=== PATIENT | male | born 1965 | race Caucasian/White ===

== ENCOUNTER → 2023-09-18 08:43 | Outpatient (REF) | payer OTHER, BC, SELFPAY | LOC: HWRCS 08:43 | PROVIDERS: ATTENDING PHYSICIAN Internal Medicine Cardiovascular Disease; FAMILY PHYSICIAN Physician Assistant Medical | DX: R06.02 Shortness of breath (principal) | CPT/HCPCS: 93306 ==

== ENCOUNTER → 2023-09-24 08:02 | Outpatient (REF) | payer OTHER, BC, SELFPAY ==
[2023-09-26 06:30] LABS: Calprotectin, Fecal 240 ug/g (<=49)
== END ==
LOC: REG 08:02
PROVIDERS: ATTENDING PHYSICIAN Specialist; FAMILY PHYSICIAN Physician Assistant Medical
DX: K50.019 Crohn's disease of small intestine with unspecified complications (principal)
CPT/HCPCS: 83993

== ENCOUNTER → 2023-10-05 08:15 | Outpatient (REF) | payer OTHER, BC, SELFPAY ==
[2023-10-05 09:15] LABS: Blood Urea Nitrogen 11 mg/dl (9-20); Calcium 9.5 mg/dl (8.4-10.2); Carbon Dioxide 29 mmol/L (22-30); Chloride 103 mmol/L (98-107); Glucose 88 mg/dl (70-99); Sodium 140 mmol/L (135-145); eGFR > 60.00
[2023-10-05 10:25] LABS: Testosterone, Total < 4.9 ng/dl (72-623)
== END ==
LOC: REG 08:15
PROVIDERS: ATTENDING PHYSICIAN Specialist; FAMILY PHYSICIAN Physician Assistant Medical
DX: N28.89 Other specified disorders of kidney and ureter (principal); N52.9 Male erectile dysfunction, unspecified
CPT/HCPCS: 36415; 80048; 84403

== ENCOUNTER → 2023-10-11 09:44 | Outpatient (REF) | payer OTHER, SELFPAY | LOC: HWRAD 09:44 | PROVIDERS: ATTENDING PHYSICIAN Specialist; FAMILY PHYSICIAN Physician Assistant Medical; REFERRING PHYSICIAN Specialist | DX: N28.89 Other specified disorders of kidney and ureter (principal) | CPT/HCPCS: 74170; Q9967 ==

== ENCOUNTER → 2023-10-17 06:07 | Day surgery (SDC) | payer OTHER, BC, SELFPAY ==
--- NOTE | 2023-09-19 11:11 | CM ---
Patient is scheduled for an elective L TKR on 10/17/23- he is a same day patient. Spoke with patient prior to surgery. Introduced role of Orthopedic Navigator. Patient reports that he lives with his in a multi story home. There is one step down
to enter and then none (5-4) steps to all living areas. He currently functions independently. He has a cane and rolling walker. He has never had VN services. PCP is Azul Alexandra.
Discussed orthopedic program and post surgical plans. Reviewed that he will have VN services initially and will then start outpatient PT. Patient selects [facility] (face sheet faxed to [facility] to facilitate confirmation of benefits) for his home care
needs and will go to [facility] for outpatient PT.
Patient is in agreement with plan and states that his will be home with him.
Patient will complete online education.
Plan: Orthopedic Navigator will remain available to assist with the care of patient and will reassess discharge needs after surgery.
[2023-09-24 07:23] VITALS: BMI 29.4
[2023-09-24 08:52] LABS: Hematocrit 38.9 % (39.0-52.0); Hemoglobin 13.6 g/dL (13.0-18.0); Mean Corpuscular Volume 94.4 fL (80.0-94.0); Mean Platelet Volume 11.2 fL (7.4-10.4); Platelet Count 140 10^3/uL (130-400); Red Blood Cell Count 4.12 10^6/uL (4.70-6.10); Red Cell Dist. Width 13.3 % (11.5-14.5); White Blood Cell Count 3.9 10^3/uL (4.8-10.8)
[2023-09-24 09:05] LABS: ALT (SGPT) 19 U/L (0-50); AST (SGOT) 43 U/L (17-59); Albumin 3.7 g/dl (3.5-5.0); Alkaline Phosphatase 89 U/L (38-126); Blood Urea Nitrogen 13 mg/dl (9-20); Calcium 8.8 mg/dl (8.4-10.2); Carbon Dioxide 29 mmol/L (22-30); Chloride 103 mmol/L (98-107); Estimated Creatinine Clearance 58 ml/min; Glucose 92 mg/dl (70-99); Potassium 3.7 mmol/L (3.5-5.1); Sodium 128 mmol/L (135-145); Total Bilirubin 0.7 mg/dl (0.2-1.3); Total Protein 5.9 g/dl (6.3-8.2); eGFR > 60.00
[2023-09-24 12:01] LABS: Glycohemoglobin (HgbA1c) 5.6 % (4.0-5.6)
[2023-09-24 15:03] VITALS: BMI 29.4
[2023-10-17] VITALS (13 sets, daily range): BP systolic 93–181; BP diastolic 67–112; PULSE 66; O2SAT 97; BMI 29.4
[2023-10-17] MEDS: CELEBREX 200 MG PO (06:45)
[2023-10-17] MEDS: NORMOSOL-R 1000 IV (06:45)
[2023-10-17] MEDS: TYLENOL 650 MG PO (06:45)
--- NOTE | 2023-10-17 06:47 | W.DS.TRANS ---
DC Summary - Ticket Sales Supervisor
-
Discharge Instructions:
Discharge Diagnosis/Procedures L JAMEY Magallon 10/17/23
Diet As tolerated
Activity With Walker
Driving Restrictions No driving
Bathing Restrictions OK to Shower
Other Services PT
Instructions:
Stand-Alone Forms: SDS Total Hip and Knee D/C
Changes to Home Medications: Yes
Discharge Medications:
DC Medications w/original date entered in [employer]
folic acid 1 mg tablet 1 mg PO DAILY Supplement 09/08/22
multivitamin 1 tab PO HS Supplement 09/08/22
glucosamine-chondroitin 2,000 mg-1,200 mg/30 mL oral liquid 15 ml PO HS 09/20/23
ibuprofen 200 mg tablet 200 mg PO Q6H PRN PAIN 09/20/23
mecobalamin (vitamin B12) 1,000 mcg chewable tablet (B12 Active) 1,000 mcg PO DAILY 09/20/23
omeprazole 40 mg capsule,delayed release 40 mg PO DAILY 09/20/23
potassium citrate 15 mEq (1,620 mg) tablet,extended release 15 meq PO BID 09/20/23
ustekinumab 90 mg/mL subcutaneous syringe (Stelara) 90 mg SC Q8W 09/20/23
gabapentin 300 mg capsule 300 mg PO HS sleep/pain #10 caps 09/24/23
hydrocodone 5 mg-acetaminophen 325 mg tablet 1 tab PO Q6H PRN 1 tab moderate pain or 2 if severe #30 tabs 09/24/23
meloxicam 15 mg tablet 15 mg PO DAILY anti-inflammatory #14 tabs 09/24/23
mupirocin 2 % topical ointment 1 applic topical BID infection prevention #1 tube 09/24/23
prednisone 10 mg tablet 40 mg PO TAPER inflammation #20 tabs 09/24/23
tizanidine 2 mg capsule 2 mg PO BID muscle relaxer/sleep #20 caps 09/24/23
acetaminophen 325 mg capsule (Tylenol) 650 mg PO QID #2 caps 10/17/23
aspirin 325 mg tablet 325 mg PO DAILY blood clot prevention #1 tab 02/28/24
docusate sodium 100 mg capsule (Colace) 100 mg PO BID stool softner #1 cap 10/17/23
sennosides 8.6 mg tablet (Senokot) 17.2 mg PO BID PRN laxative #2 tabs 10/17/23
Home Medication Changes
gabapentin 300 mg capsule 300 mg PO HS sleep/pain #10 caps 09/24/23
hydrocodone 5 mg-acetaminophen 325 mg tablet 1 tab PO Q6H PRN 1 tab moderate pain or 2 if severe #30 tabs 09/24/23
meloxicam 15 mg tablet 15 mg PO DAILY anti-inflammatory #14 tabs 09/24/23
mupirocin 2 % topical ointment 1 applic topical BID infection prevention #1 tube 09/24/23
prednisone 10 mg tablet 40 mg PO TAPER inflammation #20 tabs 09/24/23
tizanidine 2 mg capsule 2 mg PO BID muscle relaxer/sleep #20 caps 09/24/23
Pending Results: No
--- NOTE | 2023-10-17 09:20 | SUR.PHASEII ---
Dr. Moffett notified about BP will continue to monitor
--- NOTE | 2023-10-17 10:49 | CM ---
Patient had planned L TKR today. Met with patient and his at bedside to review discharge plans. Patient will be returning home today with services through [facility]. On Sunday, 10/21, patient will start outpatient PT at [facility]. Reviewed MD follow
up in two weeks and patient has already scheduled his appointment.
Patient has his rolling walker here with him.
PT and V[facility] were kept updated as to progress and discharge plans.
[2023-10-17] MEDS: ANCEF 5 IV (11:02)
== END | disposition home health service (06) ==
LOC: SDS 06:07
PROVIDERS: ATTENDING PHYSICIAN Orthopaedic Surgery; FAMILY PHYSICIAN Physician Assistant Medical; OTHER PHYSICIAN Internal Medicine Cardiovascular Disease; REFERRING PHYSICIAN Physician Assistant Medical
DX: M17.12 Unilateral primary osteoarthritis, left knee (principal)
CPT/HCPCS: 27447; C1776; C1713; 36415; 73560; 80053; 83036; 85027; 87070; 97116; 97161

== ENCOUNTER → 2024-01-02 07:57 | Outpatient (REF) | payer OTHER, BC, SELFPAY ==
[2024-01-02 10:18] LABS: Luteinizing Hormone < 0.22 mIU/ml (1.24-7.80)
[2024-01-02 10:43] LABS: Prolactin 44.9 ng/ml (3.7-17.9)
[2024-01-04 11:18] LABS: % Free Testosterone <1.3 % (1.6-2.9); Free Testosterone <1 pg/mL (47-244); Sex Hormone Binding Globulin 51 nmol/L (19-76); Testosterone, Bioavailable <1 ng/dL (131-682); Total Testosterone <3 ng/dL (300-720)
== END ==
LOC: RAD 07:57
PROVIDERS: ATTENDING PHYSICIAN Internal Medicine Critical Care Medicine; FAMILY PHYSICIAN Family Medicine; REFERRING PHYSICIAN Specialist
DX: J98.4 Other disorders of lung (principal); Q87.89 Other specified congenital malformation syndromes, not elsewhere classified; E29.1 Testicular hypofunction; N43.42 Spermatocele of epididymis, multiple
CPT/HCPCS: 36415; 71250; 82103; 82104; 83002; 84146; 84270; 84402; 84403

== ENCOUNTER → 2024-02-08 19:22 | Outpatient (REF) | payer OTHER, BC, SELFPAY | LOC: MRI 19:22 | PROVIDERS: ATTENDING PHYSICIAN Specialist; FAMILY PHYSICIAN Physician Assistant Medical | DX: E22.1 Hyperprolactinemia (principal) | CPT/HCPCS: 70553; A9575 ==

== ENCOUNTER → 2024-02-22 08:40 | Outpatient (REF) | payer OTHER, BC, SELFPAY ==
[2024-02-22 10:20] LABS: % Basophils 0.5 % (0-2); % Eosinophils 7.3 % (0-6); % Immature Granulocytes 0.2 % (0-0.5); % Lymphocytes 31.6 % (20.5-51.1); % Monocytes 9.4 % (1.7-9.3); Absolute Eosinophils 0.3 10^3/uL (0-0.7); Absolute Lymphocytes 1.4 10^3/uL (1.2-3.4); Absolute Monocytes 0.4 10^3/uL (0.1-0.6); Absolute Neutrophils 2.2 10^3/uL (1.4-6.5); Hematocrit 41.3 % (39.0-52.0); Hemoglobin 13.7 g/dL (13.0-18.0); Mean Corp Hgb Conc. 33.2 g/dL (33.0-37.0); Mean Corpuscular Hgb 30.9 pg (27.0-31.0); Mean Corpuscular Volume 93.2 fL (80.0-94.0); Mean Platelet Volume 10.2 fL (7.4-10.4); Nucleated Red Blood Cells % 0 % (-); Platelet Count 165 10^3/uL (130-400); Red Blood Cell Count 4.43 10^6/uL (4.70-6.10); Red Cell Dist. Width 12.8 % (11.5-14.5); White Blood Cell Count 4.4 10^3/uL (4.8-10.8)
[2024-02-22 10:38] LABS: ALT (SGPT) < 10 U/L (0-50); AST (SGOT) 34 U/L (17-59); Albumin 4.2 g/dl (3.5-5.0); Alkaline Phosphatase 88 U/L (38-126); Blood Urea Nitrogen 11 mg/dl (9-20); Calcium 9.5 mg/dl (8.4-10.2); Carbon Dioxide 26 mmol/L (22-30); Chloride 107 mmol/L (98-107); Glucose 90 mg/dl (70-99); Potassium 3.9 mmol/L (3.5-5.1); Sodium 142 mmol/L (135-145); Total Bilirubin 0.5 mg/dl (0.2-1.3); Total Protein 6.7 g/dl (6.3-8.2); eGFR > 60.00
[2024-02-22 10:50] LABS: Total Iron Binding Capacity 241 ug/dl (261-462)
[2024-02-22 10:52] LABS: Erythrocyte Sed Rate 14 mm/hour (0-20)
[2024-02-22 10:54] LABS: Luteinizing Hormone < 0.22 mIU/ml (1.24-7.80); Prolactin 31.1 ng/ml (3.7-17.9)
[2024-02-22 11:09] LABS: TSH Reflex To Free T4 3.98 uIU/ml (0.47-4.68)
[2024-02-22 11:10] LABS: Cortisol, Random 6.3 ug/dl
[2024-02-22 11:12] LABS: Hepatitis B Surface Antigen Negative (Negative)
[2024-02-22 11:29] LABS: Hepatitis B Core Ab, Total Negative (Negative); Hepatitis B Surface Antibody Negative; Vitamin B12 802 pg/ml (239-931)
[2024-02-23 21:03] LABS: % Free Testosterone <1.6 % (1.6-2.9); Free Testosterone <1 pg/mL (47-244); Sex Hormone Binding Globulin 36 nmol/L (19-76); Total Testosterone <3 ng/dL (300-720)
[2024-02-24 02:18] LABS: Vitamin D 1,25 Dihydroxy 24.4 pg/mL (19.9-79.3)
[2024-02-24 03:55] LABS: IGF-1 Z Score Calculation -2.3; Insulin-like Growth Factor I 58 ng/mL (53-206)
== END ==
LOC: REG 08:40
PROVIDERS: ATTENDING PHYSICIAN Internal Medicine Endocrinology, Diabetes & Metabolism; FAMILY PHYSICIAN Physician Assistant Medical; REFERRING PHYSICIAN Specialist
DX: D49.7 Neoplasm of unspecified behavior of endocrine glands and other parts of nervous system (principal); K50.00 Crohn's disease of small intestine without complications
CPT/HCPCS: 36415; 80053; 82533; 82607; 82652; 82728; 83001; 83002; 83550; 84146; 84270; 84305; 84402; 84403; 84443; 85025; 85652; 86140; 86704; 86706; 87340

== ENCOUNTER → 2024-03-08 08:24 | Outpatient (REF) | payer OTHER, BC, SELFPAY | LOC: REG 08:24 | PROVIDERS: ATTENDING PHYSICIAN Specialist | DX: K50.00 Crohn's disease of small intestine without complications (principal) | CPT/HCPCS: 83993 ==

== ENCOUNTER → 2024-03-13 07:52 | Outpatient (REF) | payer OTHER, BC, SELFPAY ==
[2024-03-13 08:16] LABS: % Eosinophils 14.2 % (0-6); % Immature Granulocytes 0.2 % (0-0.5); % Lymphocytes 30.9 % (20.5-51.1); % Monocytes 10.5 % (1.7-9.3); % Neutrophils 43.2 % (42.2-75.2); Absolute Eosinophils 0.6 10^3/uL (0-0.7); Absolute Lymphocytes 1.3 10^3/uL (1.2-3.4); Absolute Monocytes 0.4 10^3/uL (0.1-0.6); Absolute Neutrophils 1.8 10^3/uL (1.4-6.5); Hematocrit 40.2 % (39.0-52.0); Hemoglobin 14.3 g/dL (13.0-18.0); Mean Corp Hgb Conc. 35.6 g/dL (33.0-37.0); Mean Corpuscular Hgb 32.1 pg (27.0-31.0); Mean Corpuscular Volume 90.3 fL (80.0-94.0); Mean Platelet Volume 10.4 fL (7.4-10.4); Nucleated Red Blood Cells % 0 % (-); Platelet Count 151 10^3/uL (130-400); Red Blood Cell Count 4.45 10^6/uL (4.70-6.10); Red Cell Dist. Width 13.2 % (11.5-14.5); White Blood Cell Count 4.1 10^3/uL (4.8-10.8)
[2024-03-13 12:26] LABS: Cortisol, Random 7.3 ug/dl; PSA, Total - Screen < 0.06 ng/ml (0.0-4.0)
[2024-03-14 22:10] LABS: Adrenocorticotropic Hormone 41.2 pg/mL (7.2-63.3)
== END ==
LOC: REG 07:52
PROVIDERS: ATTENDING PHYSICIAN Internal Medicine Endocrinology, Diabetes & Metabolism; FAMILY PHYSICIAN Physician Assistant Medical
DX: D35.2 Benign neoplasm of pituitary gland (principal); R35.1 Nocturia
CPT/HCPCS: 36415; 82024; 82533; 85025; G0103

== ENCOUNTER → 2024-05-07 09:35 | Outpatient (REF) | payer OTHER, BC, SELFPAY ==
[2024-05-07 11:39] LABS: Free T4 0.67 ng/dl (0.78-2.19); Prolactin 31.3 ng/ml (3.7-17.9)
[2024-05-07 11:41] LABS: ALT (SGPT) 28 U/L (0-50); AST (SGOT) 55 U/L (17-59); Albumin 4.4 g/dl (3.5-5.0); Alkaline Phosphatase 77 U/L (38-126); Blood Urea Nitrogen 12 mg/dl (9-20); Calcium 9.5 mg/dl (8.4-10.2); Carbon Dioxide 29 mmol/L (22-30); Chloride 104 mmol/L (98-107); Glucose 88 mg/dl (70-99); Potassium 4.4 mmol/L (3.5-5.1); Sodium 144 mmol/L (135-145); Total Bilirubin 0.8 mg/dl (0.2-1.3); Total Protein 6.6 g/dl (6.3-8.2); eGFR > 60.00
[2024-05-07 11:53] LABS: TSH 2.85 uIU/ml (0.47-4.68)
[2024-05-07 12:00] LABS: Cortisol, Random 7.5 ug/dl
[2024-05-09 14:52] LABS: % Free Testosterone 2.1 % (1.6-2.9); Free Testosterone 106 pg/mL (47-244); Sex Hormone Binding Globulin 27 nmol/L (19-76); Total Testosterone 507 ng/dL (300-720)
== END ==
LOC: REG 09:35
PROVIDERS: ATTENDING PHYSICIAN Internal Medicine Endocrinology, Diabetes & Metabolism; FAMILY PHYSICIAN Physician Assistant Medical; REFERRING PHYSICIAN Specialist
DX: D49.7 Neoplasm of unspecified behavior of endocrine glands and other parts of nervous system (principal)
CPT/HCPCS: 36415; 80053; 82533; 84146; 84270; 84402; 84403; 84439; 84443

== ENCOUNTER → 2024-06-07 08:34 | Outpatient (REF) | payer OTHER, BC, SELFPAY ==
[2024-06-07 09:40] LABS: Blood Urea Nitrogen 12 mg/dl (9-20); Calcium 9.3 mg/dl (8.4-10.2); Carbon Dioxide 31 mmol/L (22-30); Chloride 104 mmol/L (98-107); Glucose 98 mg/dl (70-99); Potassium 4.7 mmol/L (3.5-5.1); Sodium 145 mmol/L (135-145); eGFR > 60.00
== END ==
LOC: REG 08:34
PROVIDERS: ATTENDING PHYSICIAN Specialist; FAMILY PHYSICIAN Physician Assistant Medical
DX: N28.89 Other specified disorders of kidney and ureter (principal)
CPT/HCPCS: 36415; 80048

== ENCOUNTER → 2024-06-09 06:47 | Outpatient (REF) | payer OTHER, BC, SELFPAY | LOC: RAD 06:47 | PROVIDERS: ATTENDING PHYSICIAN Specialist; FAMILY PHYSICIAN Physician Assistant Medical | DX: N28.89 Other specified disorders of kidney and ureter (principal) | CPT/HCPCS: 74170; Q9967 ==

== ENCOUNTER → 2024-08-30 08:14 | Outpatient (REF) | payer OTHER, BC, SELFPAY ==
[2024-08-30 08:51] LABS: % Basophils 0.8 % (0-2); % Eosinophils 5.7 % (0-6); % Immature Granulocytes 0.8 % (0-0.5); % Lymphocytes 31.7 % (20.5-51.1); Absolute Eosinophils 0.3 10^3/uL (0-0.7); Absolute Lymphocytes 1.6 10^3/uL (1.2-3.4); Absolute Monocytes 0.5 10^3/uL (0.1-0.6); Absolute Neutrophils 2.6 10^3/uL (1.4-6.5); Hematocrit 45.3 % (39.0-52.0); Hemoglobin 15.6 g/dL (13.0-18.0); Mean Corp Hgb Conc. 34.4 g/dL (33.0-37.0); Mean Corpuscular Hgb 32.4 pg (27.0-31.0); Mean Corpuscular Volume 94.2 fL (80.0-94.0); Mean Platelet Volume 9.9 fL (7.4-10.4); Nucleated Red Blood Cells % 0 % (-); Platelet Count 171 10^3/uL (130-400); Red Blood Cell Count 4.81 10^6/uL (4.70-6.10); Red Cell Dist. Width 13.7 % (11.5-14.5); White Blood Cell Count 5.1 10^3/uL (4.8-10.8)
[2024-08-30 09:18] LABS: ALT (SGPT) 26 U/L (0-50); AST (SGOT) 53 U/L (17-59); Albumin 4.4 g/dl (3.5-5.0); Alkaline Phosphatase 79 U/L (38-126); Blood Urea Nitrogen 15 mg/dl (9-20); Calcium 9.4 mg/dl (8.4-10.2); Carbon Dioxide 31 mmol/L (22-30); Chloride 102 mmol/L (98-107); Glucose 97 mg/dl (70-99); Potassium 4.5 mmol/L (3.5-5.1); Sodium 142 mmol/L (135-145); Total Bilirubin 0.8 mg/dl (0.2-1.3); eGFR > 60.00
[2024-08-30 09:38] LABS: FSH 2.4 mIU/ml (1.55-9.74); Free T4 1.06 ng/dl (0.78-2.19); Luteinizing Hormone 0.44 mIU/ml (1.24-7.80); Prolactin 24.1 ng/ml (3.7-17.9)
[2024-08-30 09:52] LABS: PSA, Total - Screen 1.02 ng/ml (0.0-4.0); TSH 1.05 uIU/ml (0.47-4.68)
[2024-08-30 09:53] LABS: Cortisol, Random 9.2 ug/dl
[2024-08-31 14:37] LABS: Adrenocorticotropic Hormone 45.1 pg/mL (7.2-63.3)
[2024-08-31 18:49] LABS: % Free Testosterone 1.8 % (1.6-2.9); Free Testosterone 26 pg/mL (47-244); Sex Hormone Binding Globulin 30 nmol/L (19-76); Total Testosterone 142 ng/dL (300-720)
== END ==
LOC: REG 08:14
PROVIDERS: ATTENDING PHYSICIAN Physician Assistant; FAMILY PHYSICIAN Physician Assistant Medical
DX: E27.49 Other adrenocortical insufficiency (principal); D49.7 Neoplasm of unspecified behavior of endocrine glands and other parts of nervous system; E29.1 Testicular hypofunction; E03.8 Other specified hypothyroidism
CPT/HCPCS: 36415; 80053; 82024; 82533; 83001; 83002; 84146; 84270; 84402; 84403; 84439; 84443; 85025; G0103

== ENCOUNTER → 2024-09-24 13:57 | Outpatient (REF) | payer OTHER, BC, SELFPAY | LOC: MRI 3T 13:57 | PROVIDERS: ATTENDING PHYSICIAN Physician Assistant; FAMILY PHYSICIAN Physician Assistant Medical | DX: D49.7 Neoplasm of unspecified behavior of endocrine glands and other parts of nervous system (principal) | CPT/HCPCS: 70553; A9575 ==

== ENCOUNTER → 2025-02-25 09:10 | Outpatient (REF) | payer OTHER, BC, SELFPAY ==
[2025-02-25 10:47] LABS: ALT (SGPT) 21 U/L (0-50); AST (SGOT) 42 U/L (17-59); Albumin 4.1 g/dl (3.5-5.0); Alkaline Phosphatase 68 U/L (38-126); Blood Urea Nitrogen 10 mg/dl (9-20); Calcium 9.4 mg/dl (8.4-10.2); Carbon Dioxide 30 mmol/L (22-30); Chloride 106 mmol/L (98-107); Glucose 83 mg/dl (70-99); Potassium 4.2 mmol/L (3.5-5.1); Sodium 142 mmol/L (135-145); Total Protein 6.7 g/dl (6.3-8.2); eGFR 57.18
[2025-02-25 11:14] LABS: TSH 0.17 uIU/ml (0.47-4.68)
== END ==
LOC: REG 09:10
PROVIDERS: ATTENDING PHYSICIAN Internal Medicine Endocrinology, Diabetes & Metabolism; FAMILY PHYSICIAN Physician Assistant Medical
DX: E29.1 Testicular hypofunction (principal); E27.49 Other adrenocortical insufficiency; D49.7 Neoplasm of unspecified behavior of endocrine glands and other parts of nervous system
CPT/HCPCS: 36415; 80053; 84270; 84402; 84403; 84439; 84443

== ENCOUNTER → 2025-06-18 20:17 | Outpatient (REF) | payer OTHER, BC, SELFPAY | LOC: MRI 3T 20:17 | PROVIDERS: ATTENDING PHYSICIAN Neurological Surgery; FAMILY PHYSICIAN Physician Assistant Medical | DX: D35.2 Benign neoplasm of pituitary gland (principal) | CPT/HCPCS: 70553; A9575 ==

== ENCOUNTER → 2025-06-20 09:39 | Outpatient (REF) | payer OTHER, BC, SELFPAY ==
[2025-06-20 10:00] LABS: Hematocrit 55.5 % (39.0-52.0); Hemoglobin 18.4 g/dL (13.0-18.0); Mean Corp Hgb Conc. 33.2 g/dL (33.0-37.0); Mean Corpuscular Volume 96.5 fL (80.0-94.0); Platelet Count 175 10^3/uL (130-400); Red Cell Dist. Width 13.7 % (11.5-14.5)
[2025-06-20 10:49] LABS: Blood Urea Nitrogen 11 mg/dl (9-20); Calcium 9.5 mg/dl (8.4-10.2); Carbon Dioxide 30 mmol/L (22-30); Chloride 104 mmol/L (98-107); Glucose 101 mg/dl (70-99); Potassium 4.3 mmol/L (3.5-5.1); Sodium 140 mmol/L (135-145); eGFR > 60.00
[2025-06-20 11:01] LABS: PSA, Total - Diagnostic 1.40 ng/ml (0.0-4.0)
== END ==
LOC: REG 09:39
PROVIDERS: ATTENDING PHYSICIAN Specialist; FAMILY PHYSICIAN Physician Assistant Medical; REFERRING PHYSICIAN Internal Medicine Endocrinology, Diabetes & Metabolism
DX: Z12.5 Encounter for screening for malignant neoplasm of prostate (principal); E29.1 Testicular hypofunction
CPT/HCPCS: 36415; 80048; 84153; 84403; 85027

== ENCOUNTER → 2025-07-30 16:39 | Outpatient (REF) | payer OTHER, BC, SELFPAY | LOC: RAD 16:39 | PROVIDERS: ATTENDING PHYSICIAN Specialist; FAMILY PHYSICIAN Physician Assistant Medical | DX: N28.89 Other specified disorders of kidney and ureter (principal) | CPT/HCPCS: 74170; Q9967 ==